=== PATIENT | male | born 1995 | race Native Hawaiian/Other Pacific Islander ===

== ENCOUNTER 2020-06-14 07:30 | Emergency (ER) | payer OTHER ==
[~2020-06-14] VITALS: Ht 182.9 cm; Wt 77.1 kg
[2020-06-14 07:38] VITALS: BP 126/84; TEMP 98.3
== END 2020-06-14 08:51 | disposition home or self-care (01) ==
LOC: ED 07:30
PROC: 2W3CX1Z Immobilization of Right Lower Arm using Splint (ICD-10-PCS; principal; 2020-06-14)
DX: S52.291A Other fracture of shaft of right ulna, initial encounter for closed fracture (principal); W21.11XA Struck by baseball bat, initial encounter; Y92.89 Other specified places as the place of occurrence of the external cause
CPT/HCPCS: 99283

== ENCOUNTER 2022-03-17 02:38 | Emergency (ER) | payer OTHER ==
[~2022-03-17] VITALS: Ht 182.9 cm; Wt 86.2 kg
[2022-03-17 03:20] VITALS: BP 136/68; TEMP 99
== END 2022-03-17 03:20 | disposition home or self-care (01) ==
LOC: ED 02:38
DX: J06.9 Acute upper respiratory infection, unspecified (principal); U07.1 COVID-19; F17.210 Nicotine dependence, cigarettes, uncomplicated
CPT/HCPCS: 87502; 87635; 87651; 99283; U0003